=== PATIENT | male | born 1955 | race Caucasian/White ===

== ENCOUNTER → 2018-01-19 07:49 | Outpatient (CLI) | payer OTHER, SELFPAY ==
[2018-01-19 09:12] LABS: Add Manual Diff / Slide Review NO; Basophils Percent Auto 0.7 % (0-2); Eosinophils Percent Auto 3.6 % (2-4); Hematocrit 46.1 % (41-53); Hemoglobin 16.3 g/dL (13.5-17.5); Lymphocytes Percent Auto 29.5 % (25-40); Mean Corpuscular HGB Conc 35.3 % (30-36); Mean Corpuscular Volume 93.5 fL (80-100); Monocytes Percent Auto 8.4 % (3-14); Neutrophils Absolute Auto 2600 /uL (3000-5900); Neutrophils Percent Auto 57.8 % (50-75); Platelet Count 116 X10^3/uL (150-400); Red Blood Cell Count 4.93 X10^6/uL (4.5-5.9); Red Cell Distribution Width 13.1 % (11.6-14.8); White Blood Cell Count 4.5 X10^3/uL (4.5-11.0)
[2018-01-19 09:54] LABS: Alanine Aminotransferase 29 IU/L (21-72); Albumin 4.4 g/dL (3.5-5.0); Albumin Globulin Ratio 1.4 (1.0-2.8); Alkaline Phosphatase 59 U/L (38-126); Aspartate Aminotransferase 35 IU/L (17-59); BUN Creatinine Ratio 21.3 (6-22); Bilirubin Total 0.7 mg/dL (0.2-1.3); Calcium 9.5 mg/dL (8.4-10.2); Cholesterol 161 mg/dL (140-199); Estimated Glomerular Filt Rate > 60.0 mL/min (>60); Globulin 3.1 g/dL (1.7-4.1); Glucose 117 mg/dL (80-110); HDL Cholesterol 48 mg/dL (40-60); HEMOLYSIS < 15 (0-50); LDL Cholesterol Calculated 97 mg/dL (<100); Potassium 4.1 mmol/L (3.4-5.1); Sodium 143 mmol/L (137-145); Total Protein 7.5 g/dL (6.3-8.2); Triglycerides 82 mg/dL (35-150)
[2018-01-19 10:07] LABS: Free T4, Direct Thyroxine 1.06 ng/dL (0.78-2.19)
[2018-01-19 10:21] LABS: Thyroid Stimulating Hormone 2.12 uIU/mL (0.47-4.68)
== END ==
PROVIDERS: Family Provider Physician Assistant; PCP Physician Assistant; Visit Provider Physician Assistant
DX: I25.10 Atherosclerotic heart disease of native coronary artery without angina pectoris (principal); I48.0 Paroxysmal atrial fibrillation; Z98.890 Other specified postprocedural states; Z95.2 Presence of prosthetic heart valve; E03.9 Hypothyroidism, unspecified; E78.5 Hyperlipidemia, unspecified
CPT/HCPCS: 36415; 80053; 80061; 84439; 84443; 85025

== ENCOUNTER → 2018-03-11 08:26 | Outpatient (CLI) | payer OTHER, SELFPAY ==
--- NOTE | 2018-03-11 08:28 | DI.RAD.S_ITS ---
PROCEDURE: XR LUMBAR SPINE 2-3V INDICATIONS: Lower back pain - possible spinal stenosis TECHNIQUE: 3 views of the lumbar spine were acquired. COMPARISON: None. FINDINGS: Bones: 5 [id number] vertebrae are present. Mild dextroconvex curvature. There is grade 1 retrolisthesis at L4-5 and anterolisthesis of L5-S1. Degenerative disc narrowing and facet hypertrophy L4-5 and L5-S1 with mild disc narrowing L3-4. No vertebral body compression fractures. No suspicious bony lesions. Soft tissues: Overlying bowel gas pattern is normal. No suspicious soft tissue calcifications. IMPRESSION: Degenerative disc disease, facet arthropathy and malalignment at L4-5 and L5-S1. Mild disc narrowing L3-4. Dictated by: Gavino Hadley M.D. on 03/11/2018 at 9:07 Approved by: Gavino Hadley M.D. on 03/11/2018 at 9:10
--- NOTE | 2018-03-11 08:28 | DI.RAD.S_ITS ---
PROCEDURE: XR HIP W PEL IF DONE LT MIN 4V INDICATIONS: Bilateral hip pain - suspect osteoarthritis TECHNIQUE: AP pelvis with lateral view(s) of the bilateral hip(s). COMPARISON: None. FINDINGS: Bones: No fractures or dislocations. Pelvic ring appears intact. No suspicious bony lesions. Both hip joints show mild narrowing. Marginal spurring left femoral head and both acetabula. Soft tissues: The visualized bowel gas pattern is normal. No suspicious soft tissue calcifications. IMPRESSION: Mild bilateral degenerative hip joint disease. Dictated by: Gavino Hadley M.D. on 03/11/2018 at 9:10 Approved by: Gavino Hadley M.D. on 03/11/2018 at 9:12
== END ==
PROVIDERS: Family Provider Physician Assistant; PCP Physician Assistant; Visit Provider Physician Assistant
DX: M51.36 Other intervertebral disc degeneration, lumbar region (principal)
CPT/HCPCS: 72100; 73522

== ENCOUNTER → 2018-04-01 14:40 | Outpatient (CLI) | payer OTHER, SELFPAY ==
--- NOTE | 2018-04-01 14:42 | DI.MRI.S_ITS ---
PROCEDURE: MR LUMBAR SPINE WO CON INDICATIONS: LOW BACK AND BILATERAL HIP PAIN TECHNIQUE: Noncontrast sagittal T1 spin echo and T2 fast echo, sagittal STIR, axial T1 and T2 fast spin echo through the lumbar spine. In cases with scoliosis, additional coronal T2 fast spin echo may be performed. COMPARISON: None. FINDINGS: Image quality: Excellent. Alignment and Curvature: Grade 1 retrolisthesis of L3 on L4 and L4-L5. Grade 1 anterolisthesis of L5 on S1 Bone Marrow: Marrow is of normal overall signal. No acute vertebral body compression fractures. Spinal Cord: Conus medullaris terminates at the L1-L2 level. Visualized cord demonstrates normal signal and size. Paraspinous Soft Tissues: No paravertebral masses. L1-L2: Normal appearance. L2-L3: Broad-based posterior disc bulge and bilateral facet arthropathy. No definite foraminal stenosis. L3-L4: Broad-based posterior disc bulge and bilateral facet arthropathy. Mild canal narrowing. Moderate left and mild right foraminal stenoses. L4-L5: Broad-based posterior disc bulge and bilateral facet arthropathy, with mild canal narrowing. Moderate to severe bilateral foraminal stenoses. L5-S1: Mild broad-based posterior disc bulge and bilateral facet arthropathy. Mild canal narrowing. Severe bilateral foraminal narrowing, left greater than right. IMPRESSION: Severe bilateral L5-S1 foraminal stenoses, left greater than right. Moderate to severe bilateral L4-L5 foraminal stenoses. Moderate left L3-L4 foraminal narrowing. No high-grade canal stenosis. Multilevel spondylolisthesis as above. Dictated by: Agapito Bernardo M.D. on 04/01/2018 at 15:12 Approved by: Agapito Bernardo M.D. on 04/01/2018 at 15:38
== END ==
PROVIDERS: Family Provider Physician Assistant; PCP Physician Assistant; Visit Provider Physician Assistant
DX: M48.07 Spinal stenosis, lumbosacral region (principal); M48.061 Spinal stenosis, lumbar region without neurogenic claudication; M43.16 Spondylolisthesis, lumbar region; M54.5 Low back pain; M25.552 Pain in left hip; M25.551 Pain in right hip
CPT/HCPCS: 72148

== ENCOUNTER → 2019-01-14 07:44 | Outpatient (CLI) | payer OTHER, SELFPAY ==
[2019-01-14 09:06] LABS: Add Manual Diff / Slide Review NO; Basophils Absolute Auto 0 /uL (0-100); Basophils Percent Auto 0.9 % (0-2); Eosinophils Absolute Auto 100 /uL (0-450); Eosinophils Percent Auto 3.1 % (2-4); Hematocrit 44.1 % (41-53); Hemoglobin 15.2 g/dL (13.5-17.5); Lymphocytes Absolute Auto 1100 /uL (1100-4500); Lymphocytes Percent Auto 26.5 % (25-40); Mean Corpuscular HGB Conc 34.5 % (30-36); Mean Corpuscular Hemoglobin 32.8 PG (26-34); Mean Corpuscular Volume 95.1 fL (80-100); Monocytes Absolute Auto 400 /uL (0-900); Monocytes Percent Auto 9.7 % (3-14); Neutrophils Absolute Auto 2500 /uL (1500-7000); Neutrophils Percent Auto 59.8 % (50-75); Platelet Count 100 X10^3/uL (150-400); Red Blood Cell Count 4.64 X10^6/uL (4.5-5.9); Red Cell Distribution Width 13.1 % (11.6-14.8); White Blood Cell Count 4.2 X10^3/uL (4.5-11.0)
[2019-01-14 09:15] LABS: Alanine Aminotransferase 30 IU/L (21-72); Albumin 4.1 g/dL (3.5-5.0); Albumin Globulin Ratio 1.4 (1.0-2.8); Alkaline Phosphatase 60 U/L (38-126); Aspartate Aminotransferase 38 IU/L (17-59); BUN Creatinine Ratio 21.3 (6-22); Bilirubin Total 0.5 mg/dL (0.2-1.3); Blood Urea Nitrogen 17 mg/dL (9-20); Calcium 8.9 mg/dL (8.4-10.2); Carbon Dioxide 28 mmol/L (22-32); Chloride 104 mmol/L (98-107); Cholesterol 141 mg/dL (140-199); Estimated Glomerular Filt Rate > 60.0 mL/min (>60); Glucose 114 mg/dL (80-110); HDL Cholesterol 44 mg/dL (40-60); HEMOLYSIS 22 (0-50); LDL Cholesterol Calculated 80 mg/dL (<100); Potassium 3.9 mmol/L (3.4-5.1); Sodium 139 mmol/L (137-145); Total Protein 7.1 g/dL (6.3-8.2); Triglycerides 83 mg/dL (35-150)
[2019-01-14 10:04] LABS: Thyroid Stimulating Hormone 2.62 uIU/mL (0.47-4.68)
== END ==
PROVIDERS: PCP Physician Assistant; Visit Provider Physician Assistant
DX: I25.10 Atherosclerotic heart disease of native coronary artery without angina pectoris (principal); I48.0 Paroxysmal atrial fibrillation; Z95.2 Presence of prosthetic heart valve; Z98.890 Other specified postprocedural states; E03.9 Hypothyroidism, unspecified
CPT/HCPCS: 36415; 80053; 80061; 84443; 85025

== ENCOUNTER → 2019-04-16 07:54 | Outpatient (CLI) | payer OTHER, SELFPAY ==
--- NOTE | 2019-04-16 07:56 | DI.US.S_ITS ---
PROCEDURE: US SCROTUM INDICATIONS: Testicular pain. R/o torsion TECHNIQUE: Real-time scanning was performed of the scrotum and testicles, with image documentation. Color and pulse Doppler interrogation was performed of both testicles. COMPARISON: None. FINDINGS: Right: Surgically absent, prosthesis in place. Left: Testicle is normal in size at 2.0 x 3.1 x 2.9 cm, and homogeneous in echotexture. Epididymis is normal in overall size and morphology. No hydrocele or varicoceles. Overlying scrotal skin is normal in thickness. Doppler: Color and pulse Doppler demonstrate normal and symmetric arterial flow in both testicles. IMPRESSION: Prior right orchiectomy, the right testicular prosthesis appears normal, normal left testicle, no sign of inflammation or torsion. Dictated by: Ramírez De Jesus M.D. on 04/16/2019 at 9:05 Approved by: Ramírez De Jesus M.D. on 04/16/2019 at 9:06
== END ==
PROVIDERS: PCP Physician Assistant; Visit Provider Student in an Organized Health Care Education/Training Program
DX: N50.812 Left testicular pain (principal)
CPT/HCPCS: 76870; 81001; 87491; 87591

== ENCOUNTER → 2019-04-16 14:58 | Outpatient (CLI) | payer OTHER, SELFPAY ==
[2019-04-16 15:02] LABS: Bacteria Urine None Seen; RBC Urine None Seen (0-5/HPF)
[2019-04-16 16:38] LABS: Urine N gonorrhoeae NOT DETECTED
[2019-04-16 17:13] LABS: Urine Chlamydia NOT DETECTED
[2019-04-16 18:43] LABS: Appearance Urine UA CLEAR; Bilirubin Urine UA NEGATIVE (NEGATIVE); Color Urine UA YELLOW; Glucose Urine UA NEGATIVE (Negative); Ketones Urine UA NEGATIVE (NEGATIVE); Leukocyte Esterase Urine UA NEGATIVE (NEGATIVE); Nitrite Urine UA NEGATIVE (Negative); Occult Blood Urine UA NEGATIVE (Negative); Protein Urine UA NEGATIVE (Negative); Specific Gravity Urine UA 1.015 (1.000-1.035); Urobilinogen Urine UA 0.2 E.U./dL (0.2); pH Urine UA 6.5 (4.5-8.0)
[2019-04-16 18:49] LABS: Squamous Epithelial Cell Urine 0-1 /HPF (0-5/HPF); WBC Urine 0-1/HPF (0-5/HPF)
[2019-04-16 18:50] LABS: Culture Indicated Urine Cult Not Indicated
== END ==
PROVIDERS: PCP Physician Assistant; Visit Provider Student in an Organized Health Care Education/Training Program
DX: N50.812 Left testicular pain (principal)
CPT/HCPCS: 81001; 87491; 87591

== ENCOUNTER → 2019-06-11 14:01 | Outpatient (CLI) | payer OTHER, SELFPAY ==
--- NOTE | 2019-06-11 14:56 | DI.CT.S_ITS ---
PROCEDURE: CT ABDOMEN PELVIS WO CON INDICATIONS: Lower abd pain, nausea TECHNIQUE: After the administration of oral contrast, 5 mm thick sections acquired from the diaphragms to the symphysis. 5 mm coronal and sagittal reformats were performed. For radiation dose reduction, the following was used: automated exposure control, adjustment of mA and/or kV according to patient size. COMPARISON: [facility], CT, KIDNEY/ URETER/BLADDER, 12/30/2014, 13:05. FINDINGS: Image quality: Excellent. ABDOMEN: Lung bases: Lung bases are clear. Heart size is normal. Partially visualized tricuspid valve prosthesis. Solid organs: Liver is normal in size. Gallbladder is within normal limits. Pancreas is normal in size. Spleen is normal in size. No adrenal nodules. Both kidneys are normal in size, without hydronephrosis or nephrolithiasis. Peritoneum and bowel: Bowel loops demonstrate normal wall thickness and caliber. No free fluid or air. The appendix is normal. Nodes and vessels: No retroperitoneal or mesenteric adenopathy by size criteria. Aorta and inferior vena cava are normal in size. Scattered atherosclerotic calcifications involving the abdominal and pelvic vasculature. Miscellaneous: A small fat containing umbilical hernia. PELVIS: Genitourinary: Bladder is diffusely thickened and irregular. Miscellaneous: No inguinal adenopathy. Small bilateral fat containing inguinal hernias. Bilateral seminiferous tubule calcifications with extension into the left inguinal canal stable compared to prior examination. Bones: No suspicious bony lesions. No vertebral body compression fractures. Spine degenerative disc disease and facet arthropathy. IMPRESSION: 1. Diffuse thickening and irregularity of the urinary bladder wall. Finding may represent chronic cystitis versus infiltrative neoplastic process. Recommend correlation with urinalysis and/or urology consultation. 2. The appendix is normal. 3. No dilated loops of bowel. 4. No free fluid or air. Dictated by: Jaycee Sheets MD, PhD on 06/11/2019 at 16:17 Approved by: Jaycee Sheets MD, PhD on 06/11/2019 at 16:25
== END ==
PROVIDERS: PCP Physician Assistant; Visit Provider Student in an Organized Health Care Education/Training Program
DX: R10.30 Lower abdominal pain, unspecified (principal); R11.0 Nausea; K42.9 Umbilical hernia without obstruction or gangrene
CPT/HCPCS: 74176

== ENCOUNTER → 2019-06-13 12:02 | Outpatient (CLI) | payer OTHER, SELFPAY ==
[2019-06-13 12:24] LABS: Appearance Urine UA CLEAR; Bilirubin Urine UA NEGATIVE (NEGATIVE); Color Urine UA YELLOW; Glucose Urine UA NEGATIVE (Negative); Ketones Urine UA NEGATIVE (NEGATIVE); Leukocyte Esterase Urine UA NEGATIVE (NEGATIVE); Nitrite Urine UA NEGATIVE (Negative); Occult Blood Urine UA NEGATIVE (Negative); Protein Urine UA NEGATIVE (Negative); Urobilinogen Urine UA 0.2 E.U./dL (0.2)
[2019-06-13 13:50] LABS: Bacteria Urine Occasional (0-1); RBC Urine 0-1/HPF (0-5/HPF); WBC Urine 0-1/HPF (0-5/HPF)
[2019-06-13 13:51] LABS: Culture Indicated Urine Cult Not Indicated
== END ==
PROVIDERS: PCP Physician Assistant; Visit Provider Student in an Organized Health Care Education/Training Program
DX: N32.89 Other specified disorders of bladder (principal); N50.812 Left testicular pain
CPT/HCPCS: 81001

== ENCOUNTER → 2019-09-12 13:15 | Outpatient (CLI) | payer OTHER, SELFPAY ==
[2019-09-12 15:58] LABS: Blood Urea Nitrogen 16 mg/dL (9-20); Calcium 9.6 mg/dL (8.4-10.2); Carbon Dioxide 25 mmol/L (22-32); Chloride 103 mmol/L (98-107); Estimated Glomerular Filt Rate > 60.0 mL/min (>60); Glucose 111 mg/dL (80-110); HEMOLYSIS < 15 (0-50); Potassium 3.8 mmol/L (3.4-5.1); Sodium 140 mmol/L (137-145)
== END ==
PROVIDERS: PCP Physician Assistant; Visit Provider Internal Medicine Cardiovascular Disease
DX: Z51.81 Encounter for therapeutic drug level monitoring (principal); Z79.899 Other long term (current) drug therapy
CPT/HCPCS: 36415; 80048

== ENCOUNTER → 2020-08-19 09:18 | Outpatient (CLI) | payer OTHER, SELFPAY ==
--- NOTE | 2020-08-19 09:18 | DI.US.S_ITS ---
ULTRASOUND OF RIGHT BREAST: 08/19/2020 CLINICAL: Focal right breast pain. Comparison is made to exam dated: 08/19/2020 [facility]. Color flow and Doppler ultrasound of the right breast were performed. There is a 2 cm x 1.1 cm x 2 cm mass with an angular and spiculated margin in the right breast at 3 o'clock posterior depth. This correlates with clinical findings. Color flow imaging demonstrates that there is increased vascularity. IMPRESSION: SUSPICIOUS OF MALIGNANCY The 2 cm x 1.1 cm x 2 cm mass in the right breast is at a low suspicion for malignancy. An ultrasound guided biopsy is recommended. This exam was interpreted at Station ID: [id number]. Electronically Signed By: Zachery David acr/:08/19/2020 11:06:38 letter sent: Biopsy Required Ultrasound BI-RADS: 4a Low suspicion for malignancy
--- NOTE | 2020-08-19 09:18 | DI.MG.S_ITS ---
MALE BILATERAL DIGITAL DIAGNOSTIC MAMMOGRAM 3D/2D: 08/19/2020 CLINICAL: Right breast pain. No prior exams were available for comparison. No significant masses, calcifications, or other findings are seen in either breast. IMPRESSION: INCOMPLETE: NEEDS ADDITIONAL IMAGING EVALUATION There is no abnormality seen in the right breast to correspond with the area of clinical concern and pain in the sub-areolar depth. US will be performed and dictated separately. This exam was interpreted at Station ID: [id number]. NOTE: For mammograms, a report in lay terms will be sent to the patient. Approximately 15% of breast malignancies will not be visualized mammographically. In the management of a palpable breast mass, a negative mammogram must not discourage biopsy of a clinically suspicious lesion. Electronically Signed By: Zachery David acr/:08/19/2020 10:21:42 letter sent: Additional Imaging Needed ACR BI-RADS Category 0: Incomplete [id number]
== END ==
PROVIDERS: PCP Student in an Organized Health Care Education/Training Program; Referring Provider Registered Nurse; Visit Provider Registered Nurse
DX: R92.8 Other abnormal and inconclusive findings on diagnostic imaging of breast (principal); N63.15 Unspecified lump in the right breast, overlapping quadrants; N64.4 Mastodynia
CPT/HCPCS: 76642; 77066; G0279